=== PATIENT | female | born 1985 | race Caucasian/White ===

== ENCOUNTER 2018-09-30 06:11 | Day surgery (SDC) | payer BC ==
[~2018-09-30] VITALS: Ht 175.3 cm; Wt 66.3 kg
[~2018-09-30 06:11] MED LIST: ALBU90OI INH; GAVILAX17 GM PO; Verotin-Gr Cap1 EACH PO
[2018-09-30] MEDS ORDERED: RHINOCORT ALL8.43 ML NS (06:51)
== END 2018-09-30 11:05 | disposition home or self-care (01) ==
LOC: ORSCSDS 06:11
PROVIDERS: Otolaryngology
PROC: 09B1XZZ Excision of Left External Ear, External Approach (ICD-10-PCS; principal; 2018-09-30 07:30)
PROC: 09R807Z Replacement of Left Tympanic Membrane with Autologous Tissue Substitute, Open Approach (ICD-10-PCS; principal; 2018-09-30 07:30)
DX: H69.83 Other specified disorders of Eustachian tube, bilateral (principal); J45.909 Unspecified asthma, uncomplicated; Z79.899 Other long term (current) drug therapy
CPT/HCPCS: J0171; J1100; J1885; J2250; J2310; J2405; J2710; J2765; J3010; J7120

== ENCOUNTER → 2018-10-27 | Outpatient (CLI) | payer BC ==
[~2018-10-27] MED LIST changes: +RHINOCORT ALL8.43 ML NS
== END | disposition home or self-care (01) ==
LOC: LAB 09:09 → LAB SHORT 09:09
DX: R10.13 Epigastric pain (principal); R14.0 Abdominal distension (gaseous)
CPT/HCPCS: 87338

== ENCOUNTER → 2019-06-03 | Outpatient (CLI) | payer BC | END | disposition home or self-care (01) | LOC: LAB SHORT 11:10 → PLD 11:10 | DX: D22.5 Melanocytic nevi of trunk (principal); C44.1192 Basal cell carcinoma of skin of left lower eyelid, including canthus | CPT/HCPCS: 88305 ==

== ENCOUNTER → 2019-07-12 | Outpatient (CLI) | payer BC | END | disposition home or self-care (01) | LOC: PLD 08:24 → LAB SHORT 08:24 | DX: D22.4 Melanocytic nevi of scalp and neck (principal); D22.39 Melanocytic nevi of other parts of face; D22.71 Melanocytic nevi of right lower limb, including hip; D22.72 Melanocytic nevi of left lower limb, including hip | CPT/HCPCS: 88305 ==

== ENCOUNTER → 2019-08-18 | Outpatient (CLI) | payer BC ==
[2019-08-20 15:07] LABS: HPV 16 Negative (Negative); HPV 18 Negative (Negative); HPV OTHER HR TYPES Negative (Negative)
== END | disposition home or self-care (01) ==
LOC: LAB 12:00 → LAB SHORT 12:00
PROVIDERS: Obstetrics & Gynecology
DX: Z01.419 Encounter for gynecological examination (general) (routine) without abnormal findings (principal)
CPT/HCPCS: 87624; G0123

== ENCOUNTER 2020-03-11 05:28 | Inpatient (IN) | payer BC ==
[~2020-03-11] VITALS: Ht 175.3 cm; Wt 75.9 kg
[2020-03-11] MEDS ORDERED: OMEP20ER PO (06:09)
[2020-03-11 06:10] LABS: BASOPHILS ABSOLUTE AUTO 0.02 K/mm3 (0.00-0.23); BASOPHILS PERCENT AUTO 0 % (0-2); EOSINOPHILS PERCENT AUTO 0 % (0-6); Hematocrit 35.3 % (33.0-51.0); Hemoglobin 10.8 g/dL (11.5-16.0); IMMATURE GRAN ABSOLUTE AUTO 0.06 K/mm3 (0.00-0.10); IMMATURE GRAN PERCENT AUTO 1 % (0-1); LYMPHOCYTES ABSOLUTE AUTO 1.08 K/mm3 (0.84-5.20); LYMPHOCYTES PERCENT AUTO 11 % (21-46); MONOCYTES ABSOLUTE AUTO 0.58 K/mm3 (0.16-1.47); MONOCYTES PERCENT AUTO 6 % (4-13); Mean Corpuscular HGB 27.1 pg (26.0-34.0); Mean Corpuscular HGB Conc 30.6 g/dL (31.5-36.5); Mean Corpuscular Volume 89 fL (80-100); NEUTROPHILS ABSOLUTE AUTO 8.46 K/mm3 (1.96-9.15); NEUTROPHILS PERCENT AUTO 83 % (41-73); Platelet Count 131 K/mm3 (150-400); RDW Coefficient Variation 13.6 % (11.7-14.2); RDW Standard Deviation 44.2 fL (35.1-46.3); Red Blood Cell Count 3.99 M/mm3 (3.80-5.20)
[2020-03-12 05:17] LABS: Hematocrit 29.1 % (33.0-51.0); Hemoglobin 8.9 g/dL (11.5-16.0); Mean Corpuscular HGB 27.4 pg (26.0-34.0); Mean Corpuscular HGB Conc 30.6 g/dL (31.5-36.5); Mean Corpuscular Volume 90 fL (80-100); Mean Platelet Volume 11.7 fL (9.1-12.4); Platelet Count 129 K/mm3 (150-400); RDW Coefficient Variation 13.8 % (11.7-14.2); RDW Standard Deviation 44.9 fL (35.1-46.3); Red Blood Cell Count 3.25 M/mm3 (3.80-5.20); White Blood Cell Count 13.65 K/mm3 (4.00-11.30)
--- NOTE | 2020-03-12 09:31 | NUR ---
RN ROUNDED TO HELP W/ . INSTRUCT/DEMO WIDENING LATCH, CORRECT POSITIONING, NIPPLE SHAPE AFTER FEEDS AND HAND EXPRESSION. INSTRUCT/DEMO ORAL EXERCISES TO HELP W/ COORDINATING SUCK. NB DID NOT SUCK WELL W/ ASSESSMENT AND WAS VERY CHOPPY DURING DEMONSTRATION OF ORAL EXERCISES. INSTRUCTED PT AND SO TO DO ORAL EXERCISES BEFORE EVERY FEED OF 8 TIMES IN 24 HOURS. INSTRUCTED PT TO OFFER NB THE BREAST EVERY 2-3 HOURS, IF NB IS NOT WANTING TO LATCH PT IS TO HAND EXPRESS 15-20 DROPS OF COLOSTRUM INTO NB MOUTH. INSTRUCTED PT IN THE IMPORTANCE OF SUPPLY AND DEMAND ON BREASTMILK SUPPLY. INSTRUCT/REVIEW BOOKLET AND BROCHURE ON WHAT TO EXPECT DURING THE FIRST WEEK OF LIFE W/ AND NB FEEDING PATTERN CHANGES.
[2020-03-12] MEDS ORDERED: DOCU100 PO (10:12)
[2020-03-12] MEDS ORDERED: IBUP800 PO (10:12)
--- NOTE | 2020-03-12 16:11 | NUR ---
MOTHER AND BABY SLEEPING, WILL CHECK VITALS AT A LATER TIME
--- NOTE | 2020-03-13 09:25 | NUR ---
RN ROUNDED TO HELP W/ . PT STATES THAT NB HAD HIS BEST FEED THIS MORNING FROM [phone]. STATES NB IS STILL A "LITTLE CHOMPY". INSTRUCTED PT TO CONTINUE W/ ORAL EXCERCISES BEFORE FEEDS OR FOR A MINIMUM OF 8 TIMES IN 24 HOURS. INSTRUCTED TO PUMP FOR 10-15 MINUTES AFTER EVERY FEED, INSTRUCTED ON CORRECT PUMP SETTINGS. PT HAS PALPABLE LUMPS IN BREASTS THAT WERE NOT THERE YESTERDAY WHEN RN ROUNDED, PT STATES SHE JUST NOTICED THE LUMPS THIS MORNING. RN TALKED W/ PT ABOUT EXPECTATIONS OF OVER THE NEXT COUPLE OF WEEKS AND GOALS TO REMOVE SHIELD. PT LOVING W/ NB, DENIES ANY FURTHER QUESTIONS OR CONCERNS.
--- NOTE | 2020-03-13 10:47 | NUR ---
PT GIVEN DISCHARG INSTRUCTIONS, -RE-VERBALIZED UNDERSTANDING, BANDS MATCHED, HUGS REMOVED WILL RETURN 03/14 FOR FOLLOW UP APPOINTMENTS.
== END 2020-03-13 10:26 | disposition home or self-care (01) | DRG 807 ==
LOC: OBS 05:28 → BC 05:29 → OBS 05:45 → BC 05:49
PROVIDERS: ADMIT Advanced Practice Midwife
PROC: 10E0XZZ Delivery of Products of Conception, External Approach (ICD-10-PCS; principal; 2020-03-11)
PROC: 0KQM0ZZ Repair Perineum Muscle, Open Approach (ICD-10-PCS; 2020-03-11)
PROC: 10907ZC Drainage of Amniotic Fluid, Therapeutic from Products of Conception, Via Natural or Artificial Opening (ICD-10-PCS; 2020-03-11)
PROC: 00HU33Z Insertion of Infusion Device into Spinal Canal, Percutaneous Approach (ICD-10-PCS; 2020-03-11)
PROC: 3E0R3BZ Introduction of Anesthetic Agent into Spinal Canal, Percutaneous Approach (ICD-10-PCS; 2020-03-11)
DX: O48.0 Post-term pregnancy (principal); Z37.0 Single live birth; O70.1 Second degree perineal laceration during delivery; Z3A.41 41 weeks gestation of pregnancy; O69.1XX0 Labor and delivery complicated by cord around neck, with compression, not applicable or unspecified; O90.9 Complication of the puerperium, unspecified; O90.81 Anemia of the puerperium; D64.9 Anemia, unspecified
CPT/HCPCS: 36415; 51702; 85025; 85027; 86850; 86900; 86901; J1885; J2001; J2210; J2405; J2590; J3010; J7120

== ENCOUNTER → 2023-10-08 | Outpatient (CLI) | payer BC ==
[~2023-10-08] MED LIST changes: +DOCU100 PO; +IBUP800 PO; +OMEP20ER PO
[2023-10-11 11:14] LABS: C. TRACHOMATIS BY TMA Negative (Negative); N. GONORRHOEAE BY TMA Negative (Negative); SPECIMEN SOURCE Urine
[2023-11-05 09:42] LABS: APTIMA MEDIA TYPE Urine
== END ==
LOC: LAB → LAB SHORT
PROVIDERS: Family Medicine
DX: Z34.81 Encounter for supervision of other normal pregnancy, first trimester (principal); Z3A.01 Less than 8 weeks gestation of pregnancy
CPT/HCPCS: 87086; 87491; 87591

== ENCOUNTER → 2024-04-14 | Outpatient (CLI) | payer BC | LOC: LAB 17:38 → LAB SHORT 17:38 | DX: Z34.83 Encounter for supervision of other normal pregnancy, third trimester (principal); Z3A.36 36 weeks gestation of pregnancy | CPT/HCPCS: 87081; 87150 ==

== ENCOUNTER 2024-05-13 18:59 | Inpatient (IN) | payer BC ==
[~2024-05-13] VITALS: Ht 175.3 cm; Wt 74.0 kg
[2024-05-13 19:37] VITALS: BP 129/72
[2024-05-13] MEDS ORDERED: Misoprostol 25 MCG Tab VAG PRN (20:15)
[2024-05-13] MEDS ORDERED: Acetaminophen 500 MG Tab PO PRN (20:15)
[2024-05-13] MEDS ORDERED: Ondansetron HCl 2 MG / ML 2ML Vial IV PRN (20:15)
[2024-05-13] MEDS ORDERED: Tranexamic Acid 100 ML IV SCH (20:15)
[2024-05-13] MEDS ORDERED: Calcium Carbonate 500 MG Tab Chew PO PRN (20:15)
[2024-05-13] MEDS ORDERED: Misoprostol 200 MCG Tab BC PRN (20:15)
[2024-05-13] MEDS ORDERED: OXYTOCIN/RINGER'S LACTATE 500 ML IV PRN (20:15)
[2024-05-13] MEDS ORDERED: Oxytocin 10 Unit / ML Vial IM PRN (20:15)
[2024-05-13] MEDS ORDERED: Misoprostol 200 MCG Tab PR PRN (20:15)
[2024-05-13] MEDS ORDERED: Lactated Ringer's 1,000 ML IV PRN ×2 (20:15)
[2024-05-13] MEDS ORDERED: Carboprost Tromethamine 250 MCG/ML 1ML Amp IM PRN (20:15)
[2024-05-13] MEDS ORDERED: Methylergonovine Maleate 0.2MG / ML 1ML Amp IM PRN (20:15)
[2024-05-13] MEDS ORDERED: OXYTOCIN/RINGER'S LACTATE 500 ML IV SCH (20:20)
[2024-05-13] MEDS ORDERED: Lactated Ringer's 1,000 ML IV SCH (20:20)
[2024-05-13 20:30] LABS: BASOPHILS ABSOLUTE AUTO 0.03 K/mm3 (0.00-0.23); BASOPHILS PERCENT AUTO 0 % (0-2); EOSINOPHILS ABSOLUTE AUTO 0.03 K/mm3 (0.00-0.68); EOSINOPHILS PERCENT AUTO 0 % (0-6); Hematocrit 31.5 % (33.0-51.0); Hemoglobin 10.2 g/dL (11.5-16.0); IMMATURE GRAN ABSOLUTE AUTO 0.06 K/mm3 (0.00-0.10); IMMATURE GRAN PERCENT AUTO 1 % (0-1); LYMPHOCYTES ABSOLUTE AUTO 1.92 K/mm3 (0.84-5.20); LYMPHOCYTES PERCENT AUTO 19 % (21-46); MONOCYTES ABSOLUTE AUTO 0.65 K/mm3 (0.16-1.47); MONOCYTES PERCENT AUTO 6 % (4-13); Mean Corpuscular HGB 28.8 pg (26.0-34.0); Mean Corpuscular HGB Conc 32.4 g/dL (31.5-36.5); Mean Corpuscular Volume 89 fL (80-100); Mean Platelet Volume 11.3 fL (9.1-12.4); NEUTROPHILS ABSOLUTE AUTO 7.56 K/mm3 (1.96-9.15); NEUTROPHILS PERCENT AUTO 74 % (41-73); Platelet Count 146 K/mm3 (150-400); RDW Coefficient Variation 13.2 % (11.7-14.2); RDW Standard Deviation 43.1 fL (35.1-46.3); Red Blood Cell Count 3.54 M/mm3 (3.80-5.20); White Blood Cell Count 10.25 K/mm3 (4.00-11.30)
[2024-05-13 20:38] VITALS: BP 108/72
[2024-05-13 22:37] VITALS: BP 105/55
[2024-05-14] VITALS (40 sets, daily range): BP systolic 95–131; BP diastolic 51–93
[2024-05-14] MEDS ORDERED: FentaNYL 2mcg/ml-Bup 0.1% Epd 250 ML EPI PRN (05:00)
[2024-05-14] MEDS ORDERED: ePHEDrine Sulfate 50 MG/ML 1ML Injection XX PRN (05:00)
[2024-05-14] MEDS ORDERED: Lactated Ringer's 1,000 ML IV ONE (05:00)
[2024-05-14] MEDS ORDERED: Lactated Ringer's 1,000 ML IV SCH ×2 (05:00→08:35)
[2024-05-14] MEDS ORDERED: NS 0 ML IV ONE (05:42)
[2024-05-14] MEDS ORDERED: FentaNYL Citrate 50 MCG/ML 2 ML Injection ONE (06:03)
[2024-05-14] MEDS ORDERED: Acetaminophen 325 MG TABLET PO PRN (08:30)
[2024-05-14] MEDS ORDERED: Misoprostol 100 MCG Tab PO PRN (08:30)
[2024-05-14] MEDS ORDERED: Carboprost Tromethamine 250 MCG/ML 1ML Amp IM PRN (08:30)
[2024-05-14] MEDS ORDERED: Methylergonovine Maleate 0.2MG / ML 1ML Amp IM PRN (08:30)
[2024-05-14] MEDS ORDERED: Benzocaine Topical Anesthetic Spray 60GM TOP PRN (08:30)
[2024-05-14] MEDS ORDERED: Witch Hazel/Glycerin PADS TOP PRN (08:35)
[2024-05-14] MEDS ORDERED: FLU VACC TS2024-25(6MOS UP)/PF 45 MCG/0.5 ML SYRINGE IM PRN (08:35)
[2024-05-14] MEDS ORDERED: Docusate Sodium 100 MG Cap PO PRN (08:35)
[2024-05-14] MEDS ORDERED: Ibuprofen 400 MG Tab PO PRN (08:35)
[2024-05-14] MEDS ORDERED: Misoprostol 200 MCG Tab PR PRN ×2 (08:40→09:55)
[2024-05-14] MEDS ORDERED: OxyCODONE 5 mg/Acetamin 325 mg TABLET PO PRN (08:40)
[2024-05-14] MEDS ORDERED: Misoprostol 200 MCG Tab BC PRN ×2 (08:50→12:00)
[2024-05-14] MEDS ORDERED: Prenatal Vit/FE Fumarate/FA 1 Tab PO SCH (09:00)
[2024-05-14] MEDS ORDERED: DiphenhydrAMINE HCL 25 MG Cap PO ONE (09:20)
--- NOTE | 2024-05-14 09:27 | NUR ---
0920 [facility] REMAINS FIRM WITH MASSAGE. SMALL-MOD LOCHIA NOTED. DR. LOPEZ UPDATED. TXA AND ANOTHER BAG OF PITOCIN TO BE STARTED
--- NOTE | 2024-05-14 10:00 | NUR ---
DR. LOPEZ CALLED WITH FURTHER ORDERS. UPDATED ON BLEEDING AND STATUS. WONG PLACED. 2ND IV PLACED. U/S ORDERED
[2024-05-14 10:20] LABS: BASOPHILS ABSOLUTE AUTO 0.02 K/mm3 (0.00-0.23); BASOPHILS PERCENT AUTO 0 % (0-2); EOSINOPHILS PERCENT AUTO 0 % (0-6); Hematocrit 30.3 % (33.0-51.0); Hemoglobin 9.9 g/dL (11.5-16.0); IMMATURE GRAN PERCENT AUTO 1 % (0-1); LYMPHOCYTES ABSOLUTE AUTO 0.95 K/mm3 (0.84-5.20); LYMPHOCYTES PERCENT AUTO 6 % (21-46); MONOCYTES ABSOLUTE AUTO 0.79 K/mm3 (0.16-1.47); MONOCYTES PERCENT AUTO 5 % (4-13); Mean Corpuscular HGB 28.8 pg (26.0-34.0); Mean Corpuscular HGB Conc 32.7 g/dL (31.5-36.5); Mean Corpuscular Volume 88 fL (80-100); Mean Platelet Volume 10.8 fL (9.1-12.4); NEUTROPHILS ABSOLUTE AUTO 14.96 K/mm3 (1.96-9.15); NEUTROPHILS PERCENT AUTO 89 % (41-73); Platelet Count 126 K/mm3 (150-400); RDW Coefficient Variation 13.2 % (11.7-14.2); RDW Standard Deviation 42.1 fL (35.1-46.3); Red Blood Cell Count 3.44 M/mm3 (3.80-5.20); White Blood Cell Count 16.82 K/mm3 (4.00-11.30)
[2024-05-14] MEDS ORDERED: Methylergonovine Maleate 0.2 MG Tab PO SCH (11:00)
[2024-05-14] MEDS ORDERED: Ketorolac Tromethamine 30mg Vial IV SCH (12:00)
[2024-05-14 12:31] LABS: International Normalized Ratio 0.92; Prothrombin Time Results 9.9 Sec (9.7-11.5)
--- NOTE | 2024-05-14 12:33 | NUR ---
pt up to stand at side of bed. meagan well. denies feeling light headed. legs weak and wobbly still from epidural. pt took a few steps then r/t bed. no increase in lochia noted.
[2024-05-14] MEDS ORDERED: Methylergonovine Maleate 0.2MG / ML 1ML Amp IV ONE (12:38)
[2024-05-14] MEDS ORDERED: Misoprostol 200 MCG Tab PO ONE (12:38)
--- NOTE | 2024-05-14 13:02 | NUR ---
PT VISITING WITH FAMILY. HOLDING NB AND HAS OLDER CHILD IN BED WITH HER. DENIES SENSATION OF ANY INCREASED BLEEDING. DENIES PAIN. NO LIGHT HEADEDNESS. NO COMPLAINTS AT THIS TIME
--- NOTE | 2024-05-14 14:18 | NUR ---
PT RESTING COMFORTABLY WITH NB ON CHEST. C/O CRAMPING BUT ZOHREH AT THIS TIME. LOCHIA SCANT.
--- NOTE | 2024-05-14 16:16 | NUR ---
PT UP TO AMBULATE IN ROOM TO BR. ZOHREH WELL. DESIRES TO SHOWER. PT DECLINED WONG D/C AT THIS TIME. ZOHREH BEING UP AND MOVING AROUND. LOCHIA SCANT.
[2024-05-14] MEDS ORDERED: Lanolin Cream TOP SCH (17:15)
--- NOTE | 2024-05-14 18:32 | NUR ---
PT UP TO BRP. ZOHREH WELL. LOCHIA SO SCANT NO PAD CHANGE DONE WITH BRP. PT ZOHREH SELF CARE WELL. PT REQUESTS AN IV D/C. REPORTS DISCOMFORT WITH BILATERAL IV SITES. UNDERSTANDS NEED TO RESTART IF INCREASE IN BLEEDING
[2024-05-14] MEDS ORDERED: Misoprostol 200 MCG Tab BC SCH (19:00)
[2024-05-15 02:08] VITALS: BP 106/59
[2024-05-15 06:17] VITALS: BP 111/71
[2024-05-15 06:28] LABS: BASOPHILS ABSOLUTE AUTO 0.03 K/mm3 (0.00-0.23); BASOPHILS PERCENT AUTO 0 % (0-2); EOSINOPHILS ABSOLUTE AUTO 0.03 K/mm3 (0.00-0.68); EOSINOPHILS PERCENT AUTO 0 % (0-6); Hematocrit 29.4 % (33.0-51.0); Hemoglobin 9.5 g/dL (11.5-16.0); IMMATURE GRAN ABSOLUTE AUTO 0.07 K/mm3 (0.00-0.10); IMMATURE GRAN PERCENT AUTO 1 % (0-1); LYMPHOCYTES ABSOLUTE AUTO 1.64 K/mm3 (0.84-5.20); LYMPHOCYTES PERCENT AUTO 11 % (21-46); MONOCYTES ABSOLUTE AUTO 1.04 K/mm3 (0.16-1.47); MONOCYTES PERCENT AUTO 7 % (4-13); Mean Corpuscular HGB 28.7 pg (26.0-34.0); Mean Corpuscular HGB Conc 32.3 g/dL (31.5-36.5); Mean Corpuscular Volume 89 fL (80-100); Mean Platelet Volume 10.3 fL (9.1-12.4); NEUTROPHILS ABSOLUTE AUTO 11.65 K/mm3 (1.96-9.15); NEUTROPHILS PERCENT AUTO 81 % (41-73); Platelet Count 137 K/mm3 (150-400); RDW Coefficient Variation 13.4 % (11.7-14.2); RDW Standard Deviation 43.5 fL (35.1-46.3); Red Blood Cell Count 3.31 M/mm3 (3.80-5.20); White Blood Cell Count 14.46 K/mm3 (4.00-11.30)
[2024-05-15 08:30] VITALS: BP 122/65
== END 2024-05-15 10:55 | disposition home or self-care (01) | DRG 806 ==
LOC: OBS 18:59 → BC 19:01 → OBS 19:06 → BC 20:15
PROVIDERS: ADMIT Family Medicine
PROC: 10E0XZZ Delivery of Products of Conception, External Approach (ICD-10-PCS; principal; 2024-05-14)
PROC: 0KQM0ZZ Repair Perineum Muscle, Open Approach (ICD-10-PCS; 2024-05-14)
PROC: 3E0R3BZ Introduction of Anesthetic Agent into Spinal Canal, Percutaneous Approach (ICD-10-PCS; 2024-05-14)
PROC: 00HU33Z Insertion of Infusion Device into Spinal Canal, Percutaneous Approach (ICD-10-PCS; 2024-05-14)
DX: O48.0 Post-term pregnancy (principal); O72.1 Other immediate postpartum hemorrhage; Z37.0 Single live birth; Z3A.40 40 weeks gestation of pregnancy; O70.1 Second degree perineal laceration during delivery; Z98.890 Other specified postprocedural states
CPT/HCPCS: 36415; 51702; 76857; 85025; 85384; 85610; 85730; 86850; 86900; 86901; A9270; J1885; J2210; J2405; J2590

== ENCOUNTER → 2024-06-24 | Outpatient (CLI) | payer BC ==
[2024-07-02 00:33] LABS: HPV HIGH RISK BY TMA Not Detected; HPV SOURCE Cervical
== END | disposition home or self-care (01) ==
LOC: LAB SHORT 17:50 → LAB 17:50
PROVIDERS: Family Medicine
DX: Z12.4 Encounter for screening for malignant neoplasm of cervix (principal)
CPT/HCPCS: 87624; G0123